=== PATIENT | female | born 1985 | race Caucasian/White ===

== ENCOUNTER 2017-11-09 16:31 | Observation (INO) | payer SELFPAY ==
[2017-11-09] VITALS (7 sets, daily range): BP systolic 105–112; BP diastolic 57–61; PULSE 70–91; RESP 18; TEMP 98
[~2017-11-09] VITALS: Ht 175.3 cm; Wt 77.1 kg
--- NOTE | 2017-11-09 18:01 | PD ---
HPI Chief Complaint Abdominal pain and twin at 22 weeks Date Seen: Nov 09, 2017 Time Seen: 17:40 Travel History International Travel<30 Days: No Contact w/Intl Traveler<30Days: No Known Affected Area: No History of Present Illness HPI Patient is 32-year-old white female at twin gestation 22--23 weeks who is planning to see Dr. Garg for care he has been her settlement agent for some time and is done laparoscopic surgery on her for endometriosis in the past , the patient just flew in from [place] today she had a long car ride and then 2 flights to get here and came straight to the hospital because he is having abdominal pain since before the second flight, and is quite likely she is just overextended herself and travel to my attention is gotten sore from that and dehydration. Babies are active she has no bleeding or leakage of fluid Weeks Gestation: 22 Para: 0 : 1 History Past Medical History Narrative Medical Endometriosis for which she has had a laparoscopy, interstitial cystitis, hepatitis C Obstetric History Obstetric History Twin gestation naturally no assisted reproductive techniques, Past Surgical History Narrative Surgical She has had laparoscopy for endometriosis Social History Narrative Social History History of drug addiction Alcohol Use: No Tobacco Use: No Substance Abuse: No Allergies-Medications (Allergen,Severity, Reaction): Uncoded Allergies: NARCOTICS (Allergy, Severe, RECOVERING ADDICT, 11/12/10) PT REQUESTS NO NARCOTICS Home Meds Active Scripts Nitrofurantoin Monohydrate Macrocrystals (Macrobid) 100 Mg Capsule, 100 MG PO BID for Infection for 7 Days, #14 CAP 0 Refills Prov:Delfino Zarco II, MD 11/09/17 Review of Systems General / Constitutional: No: Fever, Weight Gain, Chills, Other Eyes: No: Diploplia, Blurred Vision, Visual changes, Pain, Photophobia HENT: No: Headaches, Vertigo, Lightheadedness Cardiovascular: No: Irregular Rhythm, Chest Pain or Discomfort, Palpitations, Tachycardia, Syncope, Varicosities, Edema, Cyanosis Respiratory: No: Cough, Short of Breath, Other Gastrointestinal: Abdominal Pain, No: Nausea, Vomiting, Diarrhea Genitourinary: No: Decreased Urinary Output, Oliguria Musculoskeletal: No: Limited ROM, Weakness, Cramping, Edema, Pain Skin: No Rash, No Itching, No Dryness, No Lumps, No Change in Pigmentation, No Change in Nails, No Alopecia, No Lesions Neurologic: No: Weakness, Dizziness, Syncope, Focal Abnormalities, Coordination Problem, Headache, Slurred Speech, Seizures Psychiatric: No: Depression, Suicidal Ideations, Homicidal Ideation Endocrine: No: Heat Intolerance, Cold Intolerance, Polydipsia, Polyuria, Other Physical Exam Narrative GENERAL: Well-nourished, well-developed patient. SKIN: Warm and dry. HEAD: Normocephalic and atraumatic. EYES: No scleral icterus. No injection or drainage. ENT: No nasal drainage noted. Mucous membranes pink. Airway patent. NECK: Supple, trachea midline. No JVD. CARDIOVASCULAR: Regular rate and rhythm without murmurs, gallops, or rubs. RESPIRATORY: Breath sounds equal bilaterally. No accessory muscle use. BREASTS: Bilateral exam showed no masses , no retractions, no nipple discharge. ABDOMEN/GI: Abdomen soft, non-tender, bowel sounds present, no rebound, no guarding Gravid to [28-] weeks size[twins] Fundal Height: [-28] GENITOURINARY: External Genitalia: intact and normal in appearance BUS glands: [-] Cervix: [post-] Dilatation: [-0] Effacement: [-0] Station: [-3] Presentation: [trans/ trans by US-] Membranes: [intact ] Uterine Contractions: [no CTXS + irritability-] FHT's: 145/140 EXTREMITIES: No cyanosis or edema. BACK: Nontender without obvious deformity. No CVA tenderness. NEUROLOGICAL: Awake and alert. Motor and sensory grossly within normal limits. Five out of 5 muscle strength in all muscle groups. Normal speech. Data Data Orders Orders Ob Poc Ultrasound (11/09/17 ) Vital Signs (Adult) .ON ADMISSION (11/09/17 17:46) ^ Labor Status (11/09/17 17:46) Urinalysis - C+S If Indicated (11/09/17 17:46) ^ Non Stress Test (11/09/17 17:46) ^ Hydration (11/09/17 17:46) Lactated Ringer's 1000 Ml Inj (Lr 1000 M (11/09/17 17:46) Ob/Psych Drug Screen, Urine (11/09/17 17:46) Fentanyl Inj (Fentanyl Inj) (11/09/17 18:00) Labs Urine on LBD and dipstick shows moderate leukocyte esterase otherwise negative Bedside ultrasound was done shows a twin-twin gestation twin A is transverse back down 22 week 3 day size estimated weight 496 gm, adequate amniotic fluid noted intervening membrane seen grade 0 placenta is seen anteriorly Twin B is also transverse at 22 week 3 day size estimated weight 491 gm adequate amniotic fluid noted, in the fundus grade 0 placenta seen., Both babies were active with lots of movement normal cardiac motion, normal anatomy scan on both babies MDM Interpretation(s) Patient is 32-year-old white female at 22 weeks with twin gestation who has abdominal pain that developed during her long trip from [place] today pain is worsened by movement motion laying down and sitting up walking, she has some minimal nausea no vomiting no fever, urinalysis here was positive for moderate leukocyte esterase which could be just consistent with interstitial cystitis or possibly a low-grade UTI she has been on no antibiotics recently. Babies look good on ultrasound with concordant growth and normal fluid intervening membrane lots of activity, patient's cervix is posterior closed and high thick, no contractions seen on the monitor is uterine irritability minimal at that Plan Plan IV hydrate IV medicate with fentanyl, like to be able to send the patient home after that to pelvic bed rest as much as possible over the next 48 hours, increase p.o. fluids for hydration, Tylenol use liberally 1-2 every 4 hours as needed pain heating pad or hot bath also is for symptom relief. Will begin Macrobid 100 mg p.o. twice daily for 7 days Because the patient continues to have abdominal pain in spite of the above mentioned efforts I discussed the patient with Dr. Garg we agreed to do an inpatient 23 hour observation and treat with IV fluid IV pain medication check appropriate lab, will give 1 dose of IV gentamicin and start the p.o. Macrobid here Diagnosis Diagnosis: Primary Impression: Abdominal pain during in second trimester Additional Impressions: Twin gestation in second trimester UTI (urinary tract infection) in in second trimester Scripts Nitrofurantoin Monohydrate Macrocrystals (Macrobid) 100 Mg Capsule 100 MG PO BID for Infection for 7 Days, #14 CAP 0 Refills Prov: Delfino Zarco II, MD 11/09/17 Departure Forms: Work Release Delfino Zarco II, MD Nov 09, 2017 18:01
[2017-11-09] MEDS ORDERED: MACR100C2 PO (18:02)
[2017-11-09] MEDS: LACTATED RINGER'S 1000 ML INJ 1,000 ML IV SCH ×3 (18:35→19:35)
[2017-11-09 19:39] LABS: AMORPHOUS SEDIMENT, URINE RARE; BACTERIA, URINE MANY /hpf; BILIRUBIN, URINE NEG (NEG); BLOOD, URINE NEG (NEG); GLUCOSE,URINE NEG (NEG); KETONE, URINE NEG (NEG); MUCUS URINE FEW /lpf (OCC); NITRITE,URINE NEG (NEG); PH, URINE 6.5 (5.0-8.5); SQUAMOUS EPITHELIAL CELL URINE 6 /hpf (0-5); URINE COLOR LIGHT-YELLOW (YELLW/STRAW); URINE LEUKOCYTE ESTERASE LARGE (NEG)
[2017-11-09] MEDS ORDERED: SODIUM CHLORIDE 0.9% FLUSH 10 ML FLUSH IV FLUSH PRN (20:00)
[2017-11-09] MEDS ORDERED: ZOLPIDEM TARTRATE 5 MG TAB PO PRN (20:00)
[2017-11-09] MEDS ORDERED: ALUMINUM/MAGNESIUM/SIMETH 30 ML CUP PO PRN (20:00)
[2017-11-09] MEDS: MORPHINE SULFATE 4 MG/ML INJ IV PUSH PRN ×2 (20:24→23:19)
[2017-11-09] MEDS: ONDANSETRON HCL 4 MG/2 ML VIAL IV PUSH PRN (20:25)
[2017-11-09] MEDS ORDERED: GENTAMICIN INJ 100 MG in SODIUM CHLORIDE 0.9% INJ 100 ML IV ONE (21:00)
[2017-11-09] MEDS: SODIUM CHLORIDE 0.9% FLUSH 10 ML FLUSH IV FLUSH SCH (21:00)
[2017-11-09 21:15] LABS: AUTOMATED NEUTROPHIL # 7.6 TH/MM3 (1.8-7.7); BASOPHIL % 0.3 % (0.0-2.0); EOSINOPHIL % 0.2 % (0.0-4.0); HEMATOCRIT 28.8 % (35.0-46.0); HEMOGLOBIN 10.3 GM/DL (11.6-15.3); LYMPH % 22.1 % (9.0-44.0); LYMPHOCYTE # 2.3 TH/MM3 (1.0-4.8); MEAN CELL VOLUME 93.3 FL (80.0-100.0); MEAN CORPUSCULAR HEMOGLOBIN 33.4 PG (27.0-34.0); MEAN CORPUSCULAR HGB CONC 35.8 % (32.0-36.0); MONO % 5.2 % (0.0-8.0); MONOCYTE # 0.5 TH/MM3 (0-0.9); NEUT % 72.2 % (16.0-70.0); PLATELET COUNT 202 TH/MM3 (150-450); RED BLOOD COUNT 3.09 MIL/MM3 (4.00-5.30); RED CELL DISTRIBUTION WIDTH 14.1 % (11.6-17.2); WHITE BLOOD COUNT 10.5 TH/MM3 (4.0-11.0)
[2017-11-09 21:39] LABS: ALBUMIN 2.7 GM/DL (3.4-5.0); AST (GOT) 21 U/L (15-37); BICARBONATE 22.1 MEQ/L (21.0-32.0); BLOOD UREA NITROGEN 6 MG/DL (7-18); CALCIUM 7.8 MG/DL (8.5-10.1); CHLORIDE 107 MEQ/L (98-107); CREATININE 0.57 MG/DL (0.50-1.00); GLOMERULAR FILTRATION RATE 122 ML/MIN (>89); GLUCOSE,RANDOM 85 MG/DL (74-106); SODIUM (NA) 139 MEQ/L (136-145)
[2017-11-09 21:42] LABS: ALKALINE PHOSPHATASE 57 U/L (45-117); ALT (GPT) 27 U/L (10-53); TOTAL BILIRUBIN ADULT 0.8 MG/DL (0.2-1.0)
[2017-11-09] MEDS ORDERED: NITROFURANTOIN MONOHYD MACROCR 100 MG CAP PO ONE (22:30)
[2017-11-09] MEDS ORDERED: MAGNESIUM SULFATE 40 GM PREMIX 1,000 ML IV SCH (22:45)
[2017-11-09] MEDS ORDERED: CALCIUM GLUCONATE 10% 1 GM/10 ML VIAL IV PUSH PRN (22:45)
[2017-11-09] MEDS ORDERED: MAGNESIUM SULFATE 4GRAM PRMIX-LOAD DOSE IV ONE (22:45)
[2017-11-09] MEDS ORDERED: LIDOCAINE 2% JELLY 5 ML TUBE OTHER PRN (23:00)
[2017-11-09] MEDS: AMPICILLIN 2 GM/NS 100 ML IV SCH ×2 (23:17)
[2017-11-10] VITALS (21 sets, daily range): BP systolic 92–116; BP diastolic 51–71; PULSE 80–95; RESP 18–20; TEMP 97.9–99.5
[2017-11-10] MEDS: FAMOTIDINE 20 MG TAB PO SCH ×3 (02:00→21:11)
[2017-11-10] MEDS ORDERED: PROMETHAZINE HCL 25 MG TAB PO PRN (02:00)
--- NOTE | 2017-11-10 02:04 | PD.OB.ANTE ---
Subjective Diagnosis: (1) labor in second trimester with delivery in second trimester Diagnosis: Principal Antepartum ROS: Reports: Other (abdominal pain) Objective Vital Signs Vital Signs Date Time Temp Pulse Resp B/P (MAP) Pulse Ox O2 Delivery O2 Flow Rate FiO2 11/10/17 01:00 18 11/10/17 00:07 86 107/62 (77) 11/09/17 23:26 91 18 105/61 (76) 11/09/17 23:10 18 11/09/17 23:10 98.0 11/09/17 22:50 70 112/57 (75) 11/09/17 22:13 18 11/09/17 20:30 18 11/09/17 20:08 20 11/09/17 20:00 18 11/09/17 19:43 18 11/09/17 19:10 18 Lab & Micro Results Test 11/09/17 17:00 11/09/17 21:02 Urine Color LIGHT-YELLOW Urine Turbidity HAZY Urine pH 6.5 Urine Specific [place] 1.006 Urine Protein NEG mg/dL Urine Glucose (UA) NEG mg/dL Urine Ketones NEG mg/dL Urine Occult Blood NEG Urine Nitrite NEG Urine Bilirubin NEG Urine Urobilinogen LESS THAN 2.0 MG/DL Urine Leukocyte Esterase LARGE Urine RBC 3 /hpf Urine WBC 15 /hpf Urine Squamous Epithelial Cells 6 /hpf Urine Amorphous Sediment RARE Urine Bacteria MANY /hpf Urine Mucus FEW /lpf Microscopic Urinalysis Comment CULTURE INDICATED Urine Opiates Screen NEG Urine Barbiturates Screen NEG Urine Amphetamines Screen NEG Urine Benzodiazepines Screen NEG Urine Cocaine Screen NEG Urine Cannabinoids Screen NEG White Blood Count 10.5 TH/MM3 Red Blood Count 3.09 MIL/MM3 Hemoglobin 10.3 GM/DL Hematocrit 28.8 % Mean Corpuscular Volume 93.3 FL Mean Corpuscular Hemoglobin 33.4 PG Mean Corpuscular Hemoglobin Concent 35.8 % Red Cell Distribution Width 14.1 % Platelet Count 202 TH/MM3 Mean Platelet Volume 8.0 FL Neutrophils (%) (Auto) 72.2 % Lymphocytes (%) (Auto) 22.1 % Monocytes (%) (Auto) 5.2 % Eosinophils (%) (Auto) 0.2 % Basophils (%) (Auto) 0.3 % Neutrophils # (Auto) 7.6 TH/MM3 Lymphocytes # (Auto) 2.3 TH/MM3 Monocytes # (Auto) 0.5 TH/MM3 Eosinophils # (Auto) 0.0 TH/MM3 Basophils # (Auto) 0.0 TH/MM3 CBC Comment DIFF FINAL Differential Comment Blood Urea Nitrogen 6 MG/DL Creatinine 0.57 MG/DL Random Glucose 85 MG/DL Total Protein 6.0 GM/DL Albumin 2.7 GM/DL Calcium Level 7.8 MG/DL Alkaline Phosphatase 57 U/L Aspartate Amino Transf (AST/SGOT) 21 U/L Alanine Aminotransferase (ALT/SGPT) 27 U/L Total Bilirubin 0.8 MG/DL Sodium Level 139 MEQ/L Potassium Level 3.3 MEQ/L Chloride Level 107 MEQ/L Carbon Dioxide Level 22.1 MEQ/L Anion Gap 10 MEQ/L Estimat Glomerular Filtration Rate 122 ML/MIN Date/Time Source Procedure Growth Status 11/09/17 17:00 Urine Clean Catch Urine Culture Pending Worksheet Physical Exam GENERAL: Well-nourished, well-developed patient. CARDIOVASCULAR: Regular rate and rhythm without murmurs, gallops, or rubs. RESPIRATORY: Breath sounds equal bilaterally. No accessory muscle use. ABDOMEN/GI: Abdomen soft, non-tender. Fundus: [-] GENITOURINARY: External Genitalia: intact and normal in appearance Cervix: [-] Dilatation: deferred Effacement: [-] Station: [-] Presentation: [-] Membranes: [-] Uterine Contractions: [-] FHT's: Category: 1 Baseline: [-] Reactive: [-] Variability: [-] Decels: [-] EXTREMITIES: No cyanosis or edema, non-tender, without signs of DVT. Assessment and Plan Problem List: (1) labor in second trimester with delivery in second trimester ICD Codes: O60.12X0 - labor second trimester with delivery second trimester, not applicable or unspecified Assessment and Plan Patient given morphine and magnesium, She is with twins and travelled from [place] today Jett Simmons MD Nov 10, 2017 02:04
[2017-11-10] MEDS: ONDANSETRON HCL 4 MG/2 ML VIAL IV PUSH PRN ×2 (03:39→09:36)
[2017-11-10] MEDS: AMPICILLIN 2 GM/NS 100 ML IV SCH ×8 (05:00→22:34)
--- NOTE | 2017-11-10 07:35 | PD.OB.ANTE ---
Subjective Diagnosis: (1) labor in second trimester with delivery in second trimester Diagnosis: Principal Antepartum ROS: Reports: Other (contractions improved on 3gm magnesium. will decrease magnesium to 2 grams) Objective Vital Signs Vital Signs Date Time Temp Pulse Resp B/P (MAP) Pulse Ox O2 Delivery O2 Flow Rate FiO2 11/10/17 05:34 97.9 11/10/17 05:26 92 96/53 (67) 11/10/17 05:25 18 11/10/17 05:10 18 11/10/17 03:30 18 11/10/17 03:25 18 11/10/17 02:16 18 11/10/17 02:14 95 116/71 (86) 11/10/17 01:00 18 11/10/17 00:07 86 107/62 (77) 11/09/17 23:26 91 18 105/61 (76) 11/09/17 23:10 18 11/09/17 23:10 98.0 11/09/17 22:50 70 112/57 (75) 11/09/17 22:13 18 11/09/17 20:30 18 11/09/17 20:08 20 11/09/17 20:00 18 11/09/17 19:43 18 11/09/17 19:10 18 Lab & Micro Results Test 11/09/17 17:00 11/09/17 21:02 Urine Color LIGHT-YELLOW Urine Turbidity HAZY Urine pH 6.5 Urine Specific [place] 1.006 Urine Protein NEG mg/dL Urine Glucose (UA) NEG mg/dL Urine Ketones NEG mg/dL Urine Occult Blood NEG Urine Nitrite NEG Urine Bilirubin NEG Urine Urobilinogen LESS THAN 2.0 MG/DL Urine Leukocyte Esterase LARGE Urine RBC 3 /hpf Urine WBC 15 /hpf Urine Squamous Epithelial Cells 6 /hpf Urine Amorphous Sediment RARE Urine Bacteria MANY /hpf Urine Mucus FEW /lpf Microscopic Urinalysis Comment CULTURE INDICATED Urine Opiates Screen NEG Urine Barbiturates Screen NEG Urine Amphetamines Screen NEG Urine Benzodiazepines Screen NEG Urine Cocaine Screen NEG Urine Cannabinoids Screen NEG White Blood Count 10.5 TH/MM3 Red Blood Count 3.09 MIL/MM3 Hemoglobin 10.3 GM/DL Hematocrit 28.8 % Mean Corpuscular Volume 93.3 FL Mean Corpuscular Hemoglobin 33.4 PG Mean Corpuscular Hemoglobin Concent 35.8 % Red Cell Distribution Width 14.1 % Platelet Count 202 TH/MM3 Mean Platelet Volume 8.0 FL Neutrophils (%) (Auto) 72.2 % Lymphocytes (%) (Auto) 22.1 % Monocytes (%) (Auto) 5.2 % Eosinophils (%) (Auto) 0.2 % Basophils (%) (Auto) 0.3 % Neutrophils # (Auto) 7.6 TH/MM3 Lymphocytes # (Auto) 2.3 TH/MM3 Monocytes # (Auto) 0.5 TH/MM3 Eosinophils # (Auto) 0.0 TH/MM3 Basophils # (Auto) 0.0 TH/MM3 CBC Comment DIFF FINAL Differential Comment Blood Urea Nitrogen 6 MG/DL Creatinine 0.57 MG/DL Random Glucose 85 MG/DL Total Protein 6.0 GM/DL Albumin 2.7 GM/DL Calcium Level 7.8 MG/DL Alkaline Phosphatase 57 U/L Aspartate Amino Transf (AST/SGOT) 21 U/L Alanine Aminotransferase (ALT/SGPT) 27 U/L Total Bilirubin 0.8 MG/DL Sodium Level 139 MEQ/L Potassium Level 3.3 MEQ/L Chloride Level 107 MEQ/L Carbon Dioxide Level 22.1 MEQ/L Anion Gap 10 MEQ/L Estimat Glomerular Filtration Rate 122 ML/MIN Date/Time Source Procedure Growth Status 11/09/17 17:00 Urine Clean Catch Urine Culture Pending Worksheet Physical Exam GENERAL: Well-nourished, well-developed patient. CARDIOVASCULAR: Regular rate and rhythm without murmurs, gallops, or rubs. RESPIRATORY: Breath sounds equal bilaterally. No accessory muscle use. ABDOMEN/GI: Abdomen soft, non-tender. Fundus: [-] GENITOURINARY: External Genitalia: intact and normal in appearance Cervix: [-] Dilatation: [-] Effacement: [-] Station: [-] Presentation: [-] Membranes: [-] Uterine Contractions: [-] FHT's: Category: [-] Baseline: [-] Reactive: [-] Variability: [-] Decels: [-] EXTREMITIES: No cyanosis or edema, non-tender, without signs of DVT. Assessment and Plan Problem List: (1) labor in second trimester with delivery in second trimester ICD Codes: O60.12X0 - labor second trimester with delivery second trimester, not applicable or unspecified Assessment and Plan Patient given morphine and magnesium, She is with twins and travelled from [place] yesterday will get US today Jett Simmons MD Nov 10, 2017 07:35
[2017-11-10] MEDS ORDERED: PROMETHAZINE INJ 25 MG/ML VIAL IM PRN (08:00)
[2017-11-10] MEDS: SODIUM CHLORIDE 0.9% FLUSH 10 ML FLUSH IV FLUSH SCH ×2 (09:00→21:00)
[2017-11-10] MEDS: NITROFURANTOIN MONOHYD MACROCR 100 MG CAP PO SCH ×2 (09:00→18:11)
--- NOTE | 2017-11-10 10:52 | MB ---
cc: Johny Wilkerson MD DATE OF CONSULT: 11/10/2017 REQUESTING PHYSICIAN: Dr. Simmons HISTORY: This is the case of a 32-year-old white female 1, para 0 at 22 weeks' gestation by dates and ultrasound. The patient is known to have dichorionic diamniotic twins and was returning from a trip to [place] when she presented to [facility] complaining of abdominal pain. The patient states that this was associated with nausea but no vomiting. Denies any diarrhea. Refers that she also has had some urgency and very mild burning on urination, but no other symptoms. Denies any vaginal bleeding, leakage of water, decreased movements. The patient had received care in [place] and had seen a maternal medicine who had performed ultrasound. The last one was one week ago and was told to have dichorionic diamniotic twins. PAST MEDICAL HISTORY: 1. Significant for endometriosis for which she has had laparoscopy. 2. Also refers a history of interstitial cystitis. 3. History of hepatitis C diagnosed one year ago. PAST SURGICAL HISTORY: Significant for laparoscopy. SOCIAL HISTORY: The patient denies any current alcohol, tobacco or drug abuse, however, she does have a history of drug addiction with IV drug use and development of hepatitis C subsequent to this. ALLERGIES: THE PATIENT STATES SHE HAS NO KNOWN DRUG ALLERGIES, HOWEVER, REQUESTS NO NARCOTICS IN VIEW OF BEING A RECOVERING ADDICT. REVIEW OF SYSTEMS: On a 10-point evaluation is completely negative except for genitourinary complaints of mild dysuria and gastrointestinal complaints of abdominal pain and cramps. PHYSICAL EXAM: VITAL SIGNS: Blood pressure 110/72, heart rate 88, respiratory rate 18, afebrile. GENERAL: A well nourished, well-developed female, alert and oriented x 3 in no acute distress. HEENT: Normocephalic. Eyes PERRLA, adequate EOM. NECK: Supple. No thyromegaly. LUNGS: Clear to auscultation. HEART: Normal sinus rhythm. Grade I/ systolic ejection murmur at the left sternal border. ABDOMEN: Gravid, nontender. heart tones category I x 2. No significant contractions noted on the monitor. PELVIC: Exam deferred, however, transvaginal ultrasounds shows cervix to be closed and a cervical length of 3.2 cm. No blood noted on the glove. EXTREMITIES: No edema. Deep tendon reflexes decreased. deep tendon reflexes. Ultrasound examination, shows a twin gestation with measurements consistent with 22 weeks. A complete anatomical survey not performed as the patient could not tolerate ultrasound due to severe nausea and vomiting, but no obvious structural abnormalities were noted. Normal amniotic fluid in both sacs. As noted, transvaginal ultrasound shows the cervix to be 3.2 cm and closed. Urinalysis shows significant leukocyte esterase and large WBCs and bacteria suggestive of urinary tract infection. The patient is already on Macrobid for a UTI and culture is pending. IMPRESSION: 1. Intrauterine at 22 weeks. 2. Twin gestation dichorionic diamniotic. 3. Abdominal pain etiology unknown. 4. Grossly abnormal urinalysis suggestive of UTI. RECOMMENDATIONS: May taper off magnesium sulfate and start a clear liquid diet. If contractions ensue, may use Indocin dose of 25-50 mg q. 6 hours up to 48 hours. At the present time, I do not believe this patient is in pre-term labor and symptoms may be related to gastrointestinal problems or dehydration after a prolonged trip. I recommend the patient reestablish with care and continue serial ultrasounds at 4 week intervals due to dichorionic diamniotic twin gestation. Recommend also hepatitis C viral count and counseling as well. A liver function test should be obtained as well. Johny Wilkerson MD RAC/DL/ , 09:58 AM , 10:32 AM
[2017-11-10] MEDS: ACETAMINOPHEN 325 MG TAB PO PRN ×2 (15:41→22:34)
[2017-11-10] MEDS: LACTATED RINGER'S 1000 ML INJ 1,000 ML IV SCH ×3 (18:10→22:45)
[2017-11-11] MEDS: AMPICILLIN 2 GM/NS 100 ML IV SCH ×2 (05:12)
[2017-11-11 05:15] VITALS: TEMP 98.6
[2017-11-11 05:16] VITALS: BP 96/49; PULSE 94; RESP 18
[2017-11-11] MEDS: FAMOTIDINE 20 MG TAB PO SCH (08:38)
[2017-11-11] MEDS: NITROFURANTOIN MONOHYD MACROCR 100 MG CAP PO SCH (08:38)
[2017-11-11 08:41] VITALS: RESP 18; TEMP 98.1
--- NOTE | 2017-11-11 08:45 | PD.OB.ANTE ---
Subjective Diagnosis: (1) labor in second trimester with delivery in second trimester Diagnosis: Principal Antepartum ROS: Reports: Other (patient having less pain ready for DC home, PTL resolved) Objective Vital Signs Vital Signs Date Time Temp Pulse Resp B/P (MAP) Pulse Ox O2 Delivery O2 Flow Rate FiO2 11/11/17 05:16 94 18 96/49 (65) 11/11/17 05:15 98.6 11/10/17 22:33 98.5 80 108/60 (76) 11/10/17 22:23 18 11/10/17 22:00 18 11/10/17 19:55 99.5 20 11/10/17 18:09 90 111/67 (82) 11/10/17 16:18 85 104/58 (73) 11/10/17 13:23 20 11/10/17 13:23 98.1 11/10/17 13:22 86 92/51 (65) 11/10/17 12:00 89 105/66 (79) 11/10/17 11:00 93 108/59 (75) 11/10/17 10:00 90 105/64 (78) 11/10/17 09:38 90 103/64 (77) 11/10/17 09:03 98.7 90 20 104/63 (77) Lab & Micro Results Test 11/10/17 12:50 Urine Opiates Screen NEG Urine Barbiturates Screen NEG Urine Amphetamines Screen NEG Urine Benzodiazepines Screen NEG Urine Cocaine Screen NEG Urine Cannabinoids Screen NEG Date/Time Source Procedure Growth Status 11/09/17 17:00 Urine Clean Catch Urine Culture - Preliminary NO GROWTH IN 24 HOURS. Resulted Physical Exam GENERAL: Well-nourished, well-developed patient. CARDIOVASCULAR: Regular rate and rhythm without murmurs, gallops, or rubs. RESPIRATORY: Breath sounds equal bilaterally. No accessory muscle use. ABDOMEN/GI: Abdomen soft, non-tender. Fundus: [-] GENITOURINARY: External Genitalia: intact and normal in appearance Cervix: [-] Dilatation: [-] Effacement: [-] Station: [-] Presentation: [-] Membranes: [-] Uterine Contractions: [-] FHT's: Category: 1 Baseline: [-] Reactive: [-] Variability: [-] Decels: [-] EXTREMITIES: No cyanosis or edema, non-tender, without signs of DVT. Assessment and Plan Problem List: (1) labor in second trimester with delivery in second trimester ICD Codes: O60.12X0 - labor second trimester with delivery second trimester, not applicable or unspecified Assessment and Plan [facility] Jett Simmons MD Nov 11, 2017 08:45
[2017-11-11] MEDS ORDERED: MACR100C2 PO (08:46)
--- NOTE | 2017-11-11 08:47 | HHI.DCPOC ---
Discharge Care Plan Diagnosis: (1) labor in second trimester with delivery in second trimester Report Symptoms to Your Doctor -Temperature above 100.5 degrees -Redness, of incision or excessive or foul smelling drainage -Unusual pain or calf pain -Increased vaginal bleeding -Painful or difficulty urinating -Feelings of extreme sadness or anxiety after 2 weeks Goals to Promote Your Health * To prevent worsening of your condition and complications * To maintain your health at the optimal level Directions to Meet Your Goals Take your medications as prescribed Follow your dietary instruction Follow activity as directed Ensure plenty of rest for recovery Drink fluids for hydration Keep your appointments as scheduled Take your immunizations and boosters as scheduled If your symptoms worsen call your PCP, if no PCP go to Urgent Care Center or Emergency Room Smoking is Dangerous to Your Health. Avoid second hand smoke Call the 24-hour crisis hotline for domestic abuse at Jett Simmons MD Nov 11, 2017 08:47
--- NOTE | 2017-11-11 08:49 | HHI.DS ---
Admission Date Nov 09, 2017 at 19:46 Discharge Date: Nov 11, 2017 Admitting Diagnosis Diagnosis: (1) labor in second trimester with delivery in second trimester Diagnosis: Principal ICD Codes: O60.12X0 - labor second trimester with delivery second trimester, not applicable or unspecified (2) Abdominal pain during in second trimester Diagnosis: Principal ICD Codes: O26.892 - Other specified related conditions, second trimester; R10.9 - Unspecified abdominal pain Status: Acute Brief History Patient is 32-year-old white female at twin gestation 22--23 weeks who is planning to see Dr. 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 Babies are active she has no bleeding or leakage of fluid Hospital Course patient had severe pain and labor both have resolved Pt Condition on Discharge: Good Discharge Disposition: Discharge Home Discharge Instructions Diet Instructions: As Tolerated, No Restrictions Activities You Can Perform: Pelvic Rest Activities to Avoid: Driving for 24 hrs Follow up Referrals: [facility] - 2 Weeks @ [facility] with Jett Simmons MD Continued Medications: Nitrofurantoin Monohydrate Macrocrystals (Macrobid) 100 Mg Capsule 100 MG PO BID for Infection for 5 Days, #10 CAP 0 Refills (This prescription has been renewed) Jett Simmons MD Nov 11, 2017 08:49
== END 2017-11-11 13:02 | disposition home or self-care (01) ==
LOC: HOBED 16:31 → H2EA 19:46
PROVIDERS: ADMIT Obstetrics & Gynecology; ATTEND Obstetrics & Gynecology
DX: O26.892 Other specified pregnancy related conditions, second trimester (principal); Z3A.22 22 weeks gestation of pregnancy; O30.042 Twin pregnancy, dichorionic/diamniotic, second trimester; N39.0 Urinary tract infection, site not specified; B96.89 Other specified bacterial agents as the cause of diseases classified elsewhere; B19.20 Unspecified viral hepatitis C without hepatic coma; F19.21 Other psychoactive substance dependence, in remission; R11.0 Nausea; Z03.89 Encounter for observation for other suspected diseases and conditions ruled out
CPT/HCPCS: 36415; 76811; 76812; 76815; 76817; 80053; 80307; 80358; 81001; 85025; 87086; 96365; 96366; 96372; 96375; 96376; 99285; G0378; G0481; J0290; J1580; J2270; J2405; J2550; J3010; J3475; J7120; Q0169; G0480

== ENCOUNTER 2017-11-13 23:53 | Observation (INO) | payer SELFPAY ==
[~2017-11-13] VITALS: Ht 175.3 cm; Wt 77.1 kg
[~2017-11-13 23:53] MED LIST: MACR100C2 PO
[2017-11-14] MEDS ORDERED: PROMETHAZINE INJ 25 MG/ML VIAL IM STA (00:33)
--- NOTE | 2017-11-14 00:41 | PD ---
HPI Chief Complaint Nausea vomiting Date Seen: Nov 14, 2017 Time Seen: 00:36 Travel History International Travel<30 Days: No Contact w/Intl Traveler<30Days: No Known Affected Area: No History of Present Illness HPI 32-year-old who is at 23 weeks and 2 days with diamniotic dichorionic twin gestation who complains of nausea vomiting that began this morning. Multiple episodes of emesis with the inability to keep down fluids associated with 2 bouts of diarrhea. Patient denies vaginal bleeding, contractions, or signs of labor. She was admitted to [facility] 1 week ago after flying down from [place] and kept overnight for a workup of labor, receiving magnesium sulfate for tocolysis. Patient has been well at home since that time until this morning. There are others in her household that have similar symptoms as well. Denies fever. Weeks Gestation: 23 Para: 0 : 1 History Past Medical History Narrative Medical Endometriosis necessitating diagnostic laparoscopy Hepatitis C due to history of drug addiction Interstitial cystitis currently on no medication Past Surgical History Narrative Surgical Diagnostic laparoscopy Family History Family History: Negative Social History Narrative Social History History of opioid use in the past most recent urine drug screen while she was an inpatient was negative Alcohol Use: No Tobacco Use: No Substance Abuse: No Allergies-Medications (Allergen,Severity, Reaction): Coded Allergies: No Known Allergies (Verified Allergy, Unknown, 11/09/17) Uncoded Allergies: NARCOTICS (Allergy, Severe, RECOVERING ADDICT, 11/12/10) PT REQUESTS NO NARCOTICS Home Meds Active Scripts Nitrofurantoin Monohydrate Macrocrystals (Macrobid) 100 Mg Capsule, 100 MG PO BID for Infection for 5 Days, #10 CAP 0 Refills Prov:Jett Simmons MD 11/11/17 Review of Systems Except as stated in HPI: all other systems reviewed are Neg Physical Exam Narrative GENERAL: Well-nourished, appears mildly ill SKIN: Warm and dry. HEAD: Normocephalic and atraumatic. EYES: No scleral icterus. No injection or drainage. ENT: No nasal drainage noted. Mucous membranes pink. Airway patent. NECK: Supple, trachea midline. No JVD. CARDIOVASCULAR: Regular rate and rhythm without murmurs, gallops, or rubs. RESPIRATORY: Breath sounds equal bilaterally. No accessory mu ABDOMEN/GI: Abdomen soft, non-tender, bowel sounds present, no rebound, no guarding Gravid to [-] weeks size 27 Fundal Height: [-] GENITOURINARY: Deferred External Genitalia: intact and normal in appearance BUS glands: [-] Cervix: [-] Dilatation: [-] Effacement: [-] Station: [-] Presentation: [-] Membranes: [intact or ruptured] Uterine Contractions: [-] Patient refuses to allow external toco placement due to her extreme nausea, no palpable contractions noted, patient denies contractions FHT's: 1402 by Doppler, will attempt monitoring once patient receives fluids and antibiotics Category: [-] Baseline: [-] Reactive: [-] Variability: [-] Decels: [-] EXTREMITIES: No cyanosis or edema. BACK: Nontender without obvious deformity. No CVA tenderness. NEUROLOGICAL: Awake and alert. Motor and sensory grossly within normal limits. Five out of 5 muscle strength in all muscle groups. Normal speech. Data Data Orders Orders Vital Signs (Adult) .ON ADMISSION (11/14/17 00:33) ^ Labor Status (11/14/17 00:33) Urinalysis - C+S If Indicated (11/14/17 00:33) ^ Non Stress Test (11/14/17 00:33) Diet Liquid (11/14/17 Breakfast) Cbc No Diff, Includes Plts (11/14/17 00:33) Basic Metabolic Panel (Bmp) (11/14/17 00:33) Ondansetron Inj (Zofran Inj) (11/14/17 00:45) Lr (Bolus) Inj (11/14/17 00:45) Promethazine Inj (Phenergan Inj) (11/14/17 00:33) Labs Laboratory Tests Test 11/14/17 00:15 11/14/17 00:45 Urine Color YELLOW Urine Turbidity HAZY Urine pH 5.5 Urine Specific [place] 1.026 Urine Protein 30 mg/dL Urine Glucose (UA) NEG mg/dL Urine Ketones 150 mg/dL Urine Occult Blood NEG Urine Nitrite NEG Urine Bilirubin NEG Urine Urobilinogen 2.0 MG/DL Urine Leukocyte Esterase MOD Urine RBC 1 /hpf Urine WBC 3 /hpf Urine Squamous Epithelial Cells 12 /hpf Urine Bacteria MANY /hpf Urine Hyaline Casts 1 /lpf Urine Mucus FEW /lpf Microscopic Urinalysis Comment CULTURE INDICATED White Blood Count 13.9 TH/MM3 Red Blood Count 3.60 MIL/MM3 Hemoglobin 11.8 GM/DL Hematocrit 33.9 % Mean Corpuscular Volume 94.2 FL Mean Corpuscular Hemoglobin 32.8 PG Mean Corpuscular Hemoglobin Concent 34.8 % Red Cell Distribution Width 13.9 % Platelet Count 240 TH/MM3 Mean Platelet Volume 8.6 FL Blood Urea Nitrogen 8 MG/DL Creatinine 0.53 MG/DL Random Glucose 113 MG/DL Calcium Level 8.0 MG/DL Sodium Level 136 MEQ/L Potassium Level 3.3 MEQ/L Chloride Level 105 MEQ/L Carbon Dioxide Level 21.7 MEQ/L Anion Gap 9 MEQ/L Estimat Glomerular Filtration Rate 133 ML/MIN [facility] Medical Record Reviewed: Yes Plan 32-year-old at 23 weeks gestation with di-di-twins Acute gastroenteritis despite hydration and antiemetics patient is unable to tolerate fluids orally No signs of bacterial infection, continue IV fluids with potassium repletion Recheck metabolic profile in the morning Patient is not laureen and shows no signs of labor at this time Diagnosis Diagnosis: Primary Impression: Twin gestation in second trimester Additional Impressions: 23 weeks gestation of Gastroenteritis Dehydration symptoms Latoya Otero MD Nov 14, 2017 00:41
[2017-11-14] MEDS ORDERED: ONDANSETRON HCL 4 MG/2 ML VIAL IV PUSH ONE (00:45)
[2017-11-14] MEDS ORDERED: LACTATED RINGER'S 1000 ML INJ 1,000 ML IV ONE ×2 (00:45→02:00)
[2017-11-14 01:03] LABS: BACTERIA, URINE MANY /hpf; BILIRUBIN, URINE NEG (NEG); BLOOD, URINE NEG (NEG); GLUCOSE,URINE NEG (NEG); HYALINE CAST, URINE 1 /lpf (RARE); KETONE, URINE 150 mg/dL (NEG); MUCUS URINE FEW /lpf (OCC); NITRITE,URINE NEG (NEG); PH, URINE 5.5 (5.0-8.5); SQUAMOUS EPITHELIAL CELL URINE 12 /hpf (0-5); URINE COLOR YELLOW (YELLW/STRAW); URINE LEUKOCYTE ESTERASE MOD (NEG)
[2017-11-14 01:09] LABS: HEMATOCRIT 33.9 % (35.0-46.0); HEMOGLOBIN 11.8 GM/DL (11.6-15.3); MEAN CELL VOLUME 94.2 FL (80.0-100.0); MEAN CORPUSCULAR HEMOGLOBIN 32.8 PG (27.0-34.0); MEAN CORPUSCULAR HGB CONC 34.8 % (32.0-36.0); MEAN PLATELET VOLUME 8.6 FL (7.0-11.0); PLATELET COUNT 240 TH/MM3 (150-450); RED CELL DISTRIBUTION WIDTH 13.9 % (11.6-17.2); WHITE BLOOD COUNT 13.9 TH/MM3 (4.0-11.0)
[2017-11-14 01:23] LABS: BICARBONATE 21.7 MEQ/L (21.0-32.0); CREATININE 0.53 MG/DL (0.50-1.00)
[2017-11-14] MEDS ORDERED: ONDANSETRON HCL 4 MG/2 ML VIAL IV PUSH PRN (01:45)
[2017-11-14] MEDS ORDERED: SODIUM CHLORIDE 0.9% FLUSH 10 ML FLUSH IV FLUSH PRN (01:45)
[2017-11-14] MEDS ORDERED: FAMOTIDINE 20 MG/2 ML VIAL IV PUSH SCH (01:45)
[2017-11-14] MEDS ORDERED: ACETAMINOPHEN 325 MG TAB PO PRN (01:45)
[2017-11-14 01:58] VITALS: BP 114/66; PULSE 102
[2017-11-14 02:00] VITALS: RESP 16
[2017-11-14] MEDS: POTASSIUM CHLORIDE INJ 20 MEQ in LACTATED RINGER'S 1000 ML INJ 1,000 ML IV SCH ×2 (02:38→09:33)
[2017-11-14] MEDS: ALUMINUM/MAGNESIUM/SIMETH 30 ML CUP PO PRN ×2 (03:05→13:28)
[2017-11-14] MEDS ORDERED: ZOFR4TAB PO (03:22)
[2017-11-14 07:24] VITALS: TEMP 98.9
[2017-11-14 07:25] VITALS: BP 102/58; PULSE 101
[2017-11-14 07:41] LABS: BICARBONATE 20.1 MEQ/L (21.0-32.0); CALCIUM 7.7 MG/DL (8.5-10.1); CREATININE 0.53 MG/DL (0.50-1.00)
[2017-11-14] MEDS ORDERED: SODIUM CHLORIDE 0.9% FLUSH 10 ML FLUSH IV FLUSH SCH (09:00)
[2017-11-14 11:41] VITALS: BP 96/55; PULSE 113; TEMP 98.3; TEMP 99.3
[2017-11-14 11:50] VITALS: RESP 20
== END 2017-11-14 14:59 | disposition home or self-care (01) ==
LOC: HOBED 23:53 → H2EA 11-14 01:38
PROVIDERS: ADMIT Obstetrics & Gynecology; ATTEND Obstetrics & Gynecology
DX: O26.892 Other specified pregnancy related conditions, second trimester (principal); K52.9 Noninfective gastroenteritis and colitis, unspecified; O99.282 Endocrine, nutritional and metabolic diseases complicating pregnancy, second trimester; E86.0 Dehydration; O30.042 Twin pregnancy, dichorionic/diamniotic, second trimester; Z3A.23 23 weeks gestation of pregnancy
CPT/HCPCS: 80048; 81001; 85027; 87086; 87106; 96361; 96374; 96375; 99285; G0378; J2405; J2550; J3480; J7120

== ENCOUNTER → 2017-12-09 | Outpatient (CLI) | payer BC, OTHER ==
[~2017-12-09] MED LIST changes: -MACR100C2 PO; +ZOFR4TAB PO
== END ==
LOC: HPND 13:37
PROVIDERS: ATTEND Obstetrics & Gynecology
DX: O30.042 Twin pregnancy, dichorionic/diamniotic, second trimester (principal)
CPT/HCPCS: 76816

== ENCOUNTER 2017-12-30 16:21 | Emergency (ER) | payer BC, OTHER ==
[~2017-12-30] VITALS: Ht 175.3 cm; Wt 80.3 kg
[2017-12-30 18:09] LABS: AUTOMATED NEUTROPHIL # 6.1 TH/MM3 (1.8-7.7); BASOPHIL % 0.3 % (0.0-2.0); EOSINOPHIL % 0.5 % (0.0-4.0); HEMATOCRIT 28.8 % (35.0-46.0); HEMOGLOBIN 9.9 GM/DL (11.6-15.3); LYMPH % 23.7 % (9.0-44.0); LYMPHOCYTE # 2.1 TH/MM3 (1.0-4.8); MEAN CELL VOLUME 92.6 FL (80.0-100.0); MEAN CORPUSCULAR HEMOGLOBIN 32.1 PG (27.0-34.0); MEAN CORPUSCULAR HGB CONC 34.6 % (32.0-36.0); MEAN PLATELET VOLUME 8.8 FL (7.0-11.0); MONO % 7.4 % (0.0-8.0); MONOCYTE # 0.7 TH/MM3 (0-0.9); NEUT % 68.1 % (16.0-70.0); PLATELET COUNT 228 TH/MM3 (150-450); RED CELL DISTRIBUTION WIDTH 12.3 % (11.6-17.2); WHITE BLOOD COUNT 8.9 TH/MM3 (4.0-11.0)
[2017-12-30 19:56] LABS: BACTERIA, URINE MOD /hpf; BILIRUBIN, URINE NEG (NEG); BLOOD, URINE NEG (NEG); GLUCOSE,URINE NEG (NEG); KETONE, URINE NEG (NEG); MUCUS URINE FEW /lpf (OCC); NITRITE,URINE NEG (NEG); SQUAMOUS EPITHELIAL CELL URINE 10 /hpf (0-5); URINE COLOR YELLOW (YELLW/STRAW); URINE LEUKOCYTE ESTERASE NEG (NEG)
--- NOTE | 2017-12-30 21:47 | PD ---
HPI Chief Complaint fall Date Seen: Dec 30, 2017 Time Seen: 21:40 Travel History International Travel<30 Days: No Contact w/Intl Traveler<30Days: No Known Affected Area: No History of Present Illness HPI pt. is a @ 29 5/7 weeks presents s/p fall. pt. states she was at lab having labs drawn and fell on a wet spot on the floor. pt. states she fell forward and hit her belly. +FM, no vb/lof, no ctxs. pt. monitored for 4 hours w/ reactive fht x 2 and occasional ctxs. all lab work including kb was -. Weeks Gestation: 29 Para: 0 : 1 History Past Medical History Medical History: Denies Significant Hx Obstetric History Obstetric History Past Surgical History Surgical History: No Previous Surgery Family History Family History: Negative Social History Alcohol Use: No Tobacco Use: No Substance Abuse: No Allergies-Medications (Allergen,Severity, Reaction): Coded Allergies: No Known Allergies (Verified Allergy, Unknown, 11/14/17) Uncoded Allergies: NARCOTICS (Allergy, Severe, RECOVERING ADDICT, 11/12/10) PT REQUESTS NO NARCOTICS Home Meds Reported Medications Ondansetron (Zofran) 4 Mg Tab, 4 MG PO Q8HR Y for NAUSEA OR VOMITING, TAB 0 Refills 11/14/17 Review of Systems Except as stated in HPI: all other systems reviewed are Neg Physical Exam Narrative GENERAL: Well-nourished, well-developed patient. SKIN: Warm and dry. HEAD: Normocephalic and atraumatic. EYES: No scleral icterus. No injection or drainage. ENT: No nasal drainage noted. Mucous membranes pink. Airway patent. NECK: Supple, trachea midline. No JVD. CARDIOVASCULAR: Regular rate and rhythm without murmurs, gallops, or rubs. RESPIRATORY: Breath sounds equal bilaterally. No accessory muscle use. ABDOMEN/GI: Abdomen soft, non-tender, bowel sounds present, no rebound, no guarding Gravid Uterine Contractions: occasional FHT's: Category: 1 x 2 Reactive: + x 2 EXTREMITIES: No cyanosis or edema. BACK: Nontender without obvious deformity. No CVA tenderness. NEUROLOGICAL: Awake and alert. Motor and sensory grossly within normal limits. Five out of 5 muscle strength in all muscle groups. Normal speech. Data Data Vital Signs Reviewed: Yes Orders Orders Complete Blood Count With Diff (12/30/17 17:29) Juan Antonioauer Bart ( Hgb) (12/30/17 17:29) Type And Screen (12/30/17 17:29) Urinalysis - C+S If Indicated (12/30/17 19:08) Urine Culture (12/30/17 17:00) Director Of Assessment Clear For Discharge (12/30/17 ) Labs Laboratory Tests Test 12/30/17 17:00 12/30/17 17:37 Urine Color YELLOW Urine Turbidity HAZY Urine pH 7.0 Urine Specific [place] 1.019 Urine Protein 30 Urine Glucose (UA) NEG Urine Ketones NEG Urine Occult Blood NEG Urine Nitrite NEG Urine Bilirubin NEG Urine Urobilinogen 2.0 Urine Leukocyte Esterase NEG Urine WBC 9 Urine Squamous Epithelial Cells 10 Urine Bacteria MOD Urine Mucus FEW Microscopic Urinalysis Comment CULTURE INDICATED White Blood Count 8.9 Red Blood Count 3.10 Hemoglobin 9.9 Hematocrit 28.8 Mean Corpuscular Volume 92.6 Mean Corpuscular Hemoglobin 32.1 Mean Corpuscular Hemoglobin Concent 34.6 Red Cell Distribution Width 12.3 Platelet Count 228 Mean Platelet Volume 8.8 Neutrophils (%) (Auto) 68.1 Lymphocytes (%) (Auto) 23.7 Monocytes (%) (Auto) 7.4 Eosinophils (%) (Auto) 0.5 Basophils (%) (Auto) 0.3 Neutrophils # (Auto) 6.1 Lymphocytes # (Auto) 2.1 Monocytes # (Auto) 0.7 Eosinophils # (Auto) 0.0 Basophils # (Auto) 0.0 CBC Comment DIFF FINAL Differential Comment Hemoglobin F () 0.0 Date/Time Source Procedure Growth Status 12/30/17 17:00 Urine Clean Catch Urine Culture Pending Received [facility] Medical Record Reviewed: Yes Plan pt. s/p fall w/ trauma to abdomen. pt. currently stable now. condition d/w pt. all ? answered. pt. given precautions for return. f/u as sched. Diagnosis Diagnosis: Primary Impression: Fall Additional Impressions: Abdominal trauma 29 weeks gestation of Twin Disposition: 01 DISCHARGE HOME Colin Herrera Jr., MD Dec 30, 2017 21:47
== END 2017-12-30 21:45 | disposition home or self-care (01) ==
LOC: HOBED 16:21
DX: O30.003 Twin pregnancy, unspecified number of placenta and unspecified number of amniotic sacs, third trimester (principal); S39.91XA Unspecified injury of abdomen, initial encounter; O9A.213 Injury, poisoning and certain other consequences of external causes complicating pregnancy, third trimester; R82.90 Unspecified abnormal findings in urine; W01.0XXA Fall on same level from slipping, tripping and stumbling without subsequent striking against object, initial encounter; Y92.538 Other ambulatory health services establishments as the place of occurrence of the external cause; Z3A.29 29 weeks gestation of pregnancy
CPT/HCPCS: 76815; 81001; 83030; 85025; 86850; 86900; 86901; 87086

== ENCOUNTER → 2018-01-06 | Outpatient (CLI) | payer OTHER | LOC: HPND 09:45 | PROVIDERS: ATTEND Obstetrics & Gynecology | DX: O30.043 Twin pregnancy, dichorionic/diamniotic, third trimester (principal) | CPT/HCPCS: 76816 ==

== ENCOUNTER 2018-02-09 08:53 | Emergency (ER) | payer OTHER ==
[~2018-02-09] VITALS: Ht 175.3 cm; Wt 87.1 kg
[2018-02-09] MEDS ORDERED: PREN1TAB45 PO (09:04)
[2018-02-09] MEDS ORDERED: BENA25CA4 (09:04)
[2018-02-09] MEDS ORDERED: URSODIOL 300 MG CAP PO STA (10:40)
[2018-02-09 10:44] LABS: ALBUMIN 2.2 GM/DL (3.4-5.0); AST (GOT) 38 U/L (15-37); BICARBONATE 23.4 MEQ/L (21.0-32.0); BLOOD UREA NITROGEN 18 MG/DL (7-18); CALCIUM 9.8 MG/DL (8.5-10.1); CHLORIDE 105 MEQ/L (98-107); CREATININE 1.09 MG/DL (0.50-1.00); GLOMERULAR FILTRATION RATE 57 ML/MIN (>89); GLUCOSE,RANDOM 87 MG/DL (74-106); SODIUM (NA) 138 MEQ/L (136-145)
--- NOTE | 2018-02-09 10:49 | PD ---
HPI Chief Complaint Itching Date Seen: February 09, 2018 Travel History International Travel<30 Days: No Contact w/Intl Traveler<30Days: No Known Affected Area: No History of Present Illness HPI 33-year-old who is at 35 weeks 4 days with twin gestation comes in complaining of profuse pruritus. Patient states the pruritus began about 3-4 weeks ago initially starting on the soles of her hands and her feet and then progressing thereafter. Patient denies any evidence of rash or allergy components. And she states that this is not been an issue in the past either during the or prior to the . When patient initially started with the symptoms she had liver function test done and bile acids checked which she states was normal per the office communication but her symptoms have continuously worsened since then, not improved with Vistaril or Benadryl. Patient has had radial growth ultrasounds with the last ultrasound occurring January 06 all of which have been normal with good rate of growth. Patient has C- section scheduled for either 38 or 39 weeks gestation Weeks Gestation: 35 Para: 0 : 1 History Past Medical History Medical History: Denies Significant Hx Past Surgical History Narrative Surgical Laparoscopy Family History Family History: Negative Social History Alcohol Use: No Tobacco Use: No Substance Abuse: No Allergies-Medications (Allergen,Severity, Reaction): Coded Allergies: No Known Allergies (Verified Allergy, Unknown, 11/14/17) Uncoded Allergies: NARCOTICS (Allergy, Severe, RECOVERING ADDICT, 11/12/10) PT REQUESTS NO NARCOTICS Home Meds Active Scripts Ursodiol (Ursodiol) 300 Mg Cap, 300 MG PO TID for Gallstones for 30 Days, #90 CAP 0 Refills Prov:Latoya Otero MD 02/09/18 Reported Medications Vit,Calc76/Iron/Folic (Pnv 29-1 Tablet) 29 Mg Iron-1 Mg Tablet, 1 TAB PO DAILY 02/09/18 Diphenhydramine HCl (Benadryl Allergy) 25 Mg Cap 02/09/18 Discontinued Reported Medications Ondansetron (Zofran) 4 Mg Tab, 4 MG PO Q8HR Y for NAUSEA OR VOMITING, TAB 0 Refills 11/14/17 Review of Systems Except as stated in HPI: all other systems reviewed are Neg Physical Exam Narrative GENERAL: Well-nourished, well-developed patient. SKIN: Warm and dry. Some excoriations are noted from the patient's intense continuous scratching but no rashes seen. HEAD: Normocephalic and atraumatic. EYES: No scleral icterus. No injection or drainage. ENT: No nasal drainage noted. Mucous membranes pink. Airway patent. NECK: Supple, trachea midline. No JVD. CARDIOVASCULAR: Regular rate and rhythm without murmurs, gallops, or rubs. RESPIRATORY: Breath sounds equal bilaterally. No accessory muscle use. ABDOMEN/GI: Abdomen soft, non-tender, bowel sounds present, no rebound, no guarding Gravid to [-42] weeks size Fundal Height: [-] GENITOURINARY: Deferred External Genitalia: intact and normal in appearance BUS glands: [-] Cervix: [-] Dilatation: [-] Effacement: [-] Station: [-] Presentation: [-] Membranes: [intact or ruptured] Uterine Contractions: [-] FHT's: Category: [-] 1 in both babies Baseline: [-] 140 baby A, 145 baby B Reactive: [-] Moderate in both babies Variability: [-] Moderate in both babies Decels: [-] EXTREMITIES: No cyanosis or edema. BACK: Nontender without obvious deformity. No CVA tenderness. NEUROLOGICAL: Awake and alert. Motor and sensory grossly within normal limits. Five out of 5 muscle strength in all muscle groups. Normal speech. Data Data Orders Orders Comprehensive Metabolic Panel (02/09/18 09:52) Bile Acids Total (02/09/18 09:52) Ursodiol (Actigall) (02/09/18 10:40) Us Ob Bpp Wo Nst (02/09/18 ) Labs Laboratory Tests Test 02/09/18 10:11 02/09/18 10:27 Blood Urea Nitrogen 18 Creatinine 1.09 Random Glucose 87 Albumin 2.2 Calcium Level 9.8 Aspartate Amino Transf (AST/SGOT) 38 Sodium Level 138 Potassium Level 4.0 Chloride Level 105 Carbon Dioxide Level 23.4 Anion Gap 10 Estimat Glomerular Filtration Rate 57 MDM Medical Record Reviewed: Yes Plan 33-year-old twin gestation at 35-36 weeks with likely acute cholestasis of Patient was given a prescription for ursodiol 300 mg 3 times a day and she was given hydroxyzine here in the hospital Bile salts were rechecked but will not be ready as they are send out test and her 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
[2018-02-09] MEDS ORDERED: URSO300C2 PO (10:51)
[2018-02-09 10:52] LABS: ALKALINE PHOSPHATASE 174 U/L (45-117); ALT (GPT) 31 U/L (10-53); TOTAL BILIRUBIN ADULT 0.6 MG/DL (0.2-1.0); TOTAL PROTEIN 6.3 GM/DL (6.4-8.2)
== END 2018-02-09 11:56 | disposition home or self-care (01) ==
LOC: HOBED 08:53
DX: O26.893 Other specified pregnancy related conditions, third trimester (principal); L29.9 Pruritus, unspecified; O26.613 Liver and biliary tract disorders in pregnancy, third trimester; K83.1 Obstruction of bile duct; O30.003 Twin pregnancy, unspecified number of placenta and unspecified number of amniotic sacs, third trimester; Z3A.35 35 weeks gestation of pregnancy; Z79.899 Other long term (current) drug therapy
CPT/HCPCS: 36415; 76816; 76819; 80053; 82239

== ENCOUNTER 2018-02-14 02:38 | Inpatient (IN) | payer OTHER ==
[~2018-02-14 02:38] MED LIST changes: +BENA25CA4; +PREN1TAB45 PO; +URSO300C2 PO; -ZOFR4TAB PO
[2018-02-14] MEDS ORDERED: LACTATED RINGER'S 1000 ML INJ 1,000 ML IV ONE (04:03)
--- NOTE | 2018-02-14 04:03 | HHI.HP ---
History & Physical H&P Patient Name: Marti Barrera Unit Number: [id number] Date of : 1985 Patient Status: Admitted Inpatient Attending Doctor: Kimmie An MD HPI HPI Chief Complaint Leaking fluid Date Seen: Feb 14, 2018 Time Seen: 03:55 Travel History International Travel<30 Days: No Contact w/Intl Traveler<30Days: No Known Affected Area: No History of Present Illness HPI 33-year-old primigravida at 36+ weeks gestation with dichorionic twins who reports leaking fluid at 130. She is also having contractions now. She denies bleeding or diminished movement. She is anticipating a scheduled C- section later this month. History (Limited) History Past Medical History Narrative Medical History of hepatitis C, history of HSV with recent outbreak 2 weeks ago but no symptoms now Obstetric History Obstetric History Dichorionic diamniotic twins followed by Dr. Garg Recent working diagnosis of cholestasis of for which she is on ursodiol. No laboratory confirmation yet. HSV outbreak 2 weeks ago with no symptoms now. Past Surgical History Narrative Surgical Laparoscopy 2 for endometriosis Family History Family History: Negative Social History Alcohol Use: No Tobacco Use: No Substance Abuse: No Allergies-Medications Allergies-Medications (Allergen,Severity, Reaction): Coded Allergies: No Known Allergies (Verified Allergy, Unknown, 11/14/17) Uncoded Allergies: NARCOTICS (Allergy, Severe, RECOVERING ADDICT, 11/12/10) PT REQUESTS NO NARCOTICS Home Meds Active Scripts Ursodiol (Ursodiol) 300 Mg Cap, 300 MG PO TID for Gallstones for 30 Days, #90 CAP 0 Refills Prov:Latoya Otero MD 02/09/18 Reported Medications Vit,Calc76/Iron/Folic (Pnv 29-1 Tablet) 29 Mg Iron-1 Mg Tablet, 1 TAB PO DAILY 02/09/18 Diphenhydramine HCl (Benadryl Allergy) 25 Mg Cap 02/09/18 Discontinued Reported Medications Ondansetron (Zofran) 4 Mg Tab, 4 MG PO Q8HR Y for NAUSEA OR VOMITING, TAB 0 Refills 11/14/17 ROS Review of Systems Except as stated in HPI: all other systems reviewed are Neg Physical Exam Physical Exam Narrative GENERAL: Well-nourished, well-developed patient. SKIN: Warm and dry. HEAD: Normocephalic and atraumatic. EYES: No scleral icterus. No injection or drainage. ENT: No nasal drainage noted. Mucous membranes pink. Airway patent. NECK: Supple, trachea midline. No JVD. CARDIOVASCULAR: Regular rate and rhythm without murmurs, gallops, or rubs. RESPIRATORY: Breath sounds equal bilaterally. No accessory muscle use. BREASTS: Bilateral exam showed no masses , no retractions, no nipple discharge. ABDOMEN/GI: Abdomen soft, non-tender, bowel sounds present, no rebound, no guarding Gravid to [-] weeks size Fundal Height: [-] GENITOURINARY: External Genitalia: intact and normal in appearance BUS glands: [Negative-] Cervix: [-] Dilatation: [1-2 cm-] Effacement: [80%-] Station: [--2] Presentation: [-] Membranes: [ruptured] Uterine Contractions: [Every 2-3-] FHT's: Category: [-12] Baseline: [-] Reactive: [-] Variability: [-] Decels: [-] EXTREMITIES: No cyanosis or edema. BACK: Nontender without obvious deformity. No CVA tenderness. NEUROLOGICAL: Awake and alert. Motor and sensory grossly within normal limits. Five out of 5 muscle strength in all muscle groups. Normal speech. Data Data Data Vital Signs Reviewed: Yes Orders Orders Ob (2e) Additional Admit Info (02/14/18 03:27) MDM MDM Medical Record Reviewed: Yes Narrative Course / MDM Assessment: Primigravida at 36+ weeks with dichorionic twins and ruptured membranes with onset of contractions who desires delivery Plan: Patient will be admitted for labor management. Dr. An was notified of her presence. A at 6 AM is being arranged. The patient last ate at 1 AM which included hotdogs and chocolate milk. Diagnosis Diagnosis: Primary Impression: 36 weeks gestation of Additional Impressions: Dichorionic diamniotic twin gestation Ruptured, membranes, premature Condition: Good Dileep Sams MD Feb 14, 2018 04:03 Dileep Sams MD Feb 14, 2018 04:03
[2018-02-14] MEDS ORDERED: LACTATED RINGER'S 1000 ML INJ 1,000 ML IV SCH ×2 (04:33→19:30)
[2018-02-14 04:42] LABS: AUTOMATED NEUTROPHIL # 7.3 TH/MM3 (1.8-7.7); BASOPHIL % 0.2 % (0.0-2.0); EOSINOPHIL % 0.3 % (0.0-4.0); HEMATOCRIT 32.5 % (35.0-46.0); LYMPH % 30.3 % (9.0-44.0); LYMPHOCYTE # 3.5 TH/MM3 (1.0-4.8); MEAN CELL VOLUME 86.7 FL (80.0-100.0); MEAN CORPUSCULAR HEMOGLOBIN 29.4 PG (27.0-34.0); MEAN CORPUSCULAR HGB CONC 33.9 % (32.0-36.0); MEAN PLATELET VOLUME 10.8 FL (7.0-11.0); MONO % 5.9 % (0.0-8.0); MONOCYTE # 0.7 TH/MM3 (0-0.9); NEUT % 63.3 % (16.0-70.0); PLATELET COUNT 255 TH/MM3 (150-450); RED BLOOD COUNT 3.75 MIL/MM3 (4.00-5.30); RED CELL DISTRIBUTION WIDTH 13.5 % (11.6-17.2); WHITE BLOOD COUNT 11.6 TH/MM3 (4.0-11.0)
[2018-02-14] MEDS ORDERED: ceFAZolin 2 GM PREMIX 50 ML IV SCH (05:15)
[2018-02-14] MEDS ORDERED: MORPHINE SULFATE PF 5 MG/10 ML VIAL ONE (05:26)
[2018-02-14] MEDS ORDERED: CITRIC ACID-SODIUM CITRATE LIQ 30 ML UDC PO SCH (05:45)
[2018-02-14] MEDS ORDERED: EPIDURAL-NALOXONE HCL 0.4 MG/ML AMP IV PUSH PRN (06:05)
[2018-02-14] MEDS ORDERED: EPIDURAL-DIPHENHYDRAMINE HCL 50 MG/ML VIAL IV PUSH PRN (06:05)
[2018-02-14] MEDS ORDERED: EPIDURAL-DO NOT ADMINISTER ANTICOAGULANTS PRN (06:05)
[2018-02-14] MEDS ORDERED: EPIDURAL-DIPHENHYDRAMINE HCL 50 MG CAP PO PRN (06:05)
[2018-02-14] MEDS ORDERED: EPIDURAL-NO SYSTEMIC NARCOTICS PRN (06:05)
[2018-02-14] MEDS ORDERED: oxyCODONE/ACETAMINOPHEN 5 MG/325 MG TAB PO PRN (07:00)
[2018-02-14] MEDS ORDERED: KETOROLAC TROMETHAMINE 60 MG/2 ML (IM) VIAL IM PRN (07:00)
[2018-02-14] MEDS ORDERED: ONDANSETRON ODT 4 MG TAB PO PRN (07:00)
[2018-02-14] MEDS ORDERED: SODIUM CHLORIDE 0.9% FLUSH 10 ML FLUSH IV FLUSH PRN (07:00)
[2018-02-14] MEDS ORDERED: OXYTOCIN 30 UNITS-500ML PREMIX 500 ML IV ONE (07:00)
--- NOTE | 2018-02-14 07:39 | MP ---
cc: Kimmie An MD DATE OF OPERATION: 02/14/2018 DATE OF SURGERY: 02/14/2018. PREOPERATIVE DIAGNOSIS: Intrauterine at 36 weeks and 2 days gestation with twins, vertex breech presentation, in active labor. POSTOPERATIVE DIAGNOSES: Intrauterine at 36 weeks and 2 days gestation with twins, vertex breech presentation, in active labor. PROCEDURE PERFORMED: Primary low transverse section. SURGEON: Dr. Kimmie An. ANESTHESIA: Spinal. FINDINGS: In surgery included baby A, a viable female weighing 5 pounds 9 ounces with Apgars 8 and 9, and baby B, a viable male, 6 pounds 7 ounces with Apgars 7 and 7. BLOOD LOSS: 800 mL COMPLICATIONS: None. PROCEDURE IN DETAIL: After proper consents were obtained, blood had been typed and screened, the patient was taken to the operating room, where spinal anesthetic was placed. She was then placed in the dorsal position, sterilely prepped and draped, and a Sutton catheter was placed. At this time, using a sharp knife, a Pfannenstiel skin incision was made. This was carried down to the fascia using the Bovie cautery. The fascia was nicked in the midline and extended superolaterally on each side using the Bovie cautery. Muscle bellies were bluntly dissected from the fascia. Peritoneum identified, grasped with 2 hemostats, entered sharply with the Metzenbaum scissors. This incision was extended superiorly and inferiorly, paying close attention to the bladder. Bladder blade was placed. Bladder flap was developed. Bladder blade was replaced. Transverse incision in the lower uterine segment. This was extended using the finger fracture technique. Controlled delivery of vertex of the first baby A, bulb suction of the oropharynx and the nares, and then the delivery of the body followed. We delayed cord clamping for about 30 seconds, clamped the cord, cut in between, and that was handed to the team in attendance, a viable female, 5 pounds 9 ounces, with Apgars 8 and 9. I then broke baby B's water. It was presenting as a footling breech. I delivered the right leg, followed by the left leg. I rotated the body to dorsal side up, mid scapular region, swept the right hand across the face and out, the left hand across, and then delivered the vertex. Bulb suction to the oropharynx and the nares. We did not delay cord clamping here because the baby did not have much tone and the neonatology team wanted the baby. We went ahead and clamped the cord, cut in between, and that was handed to the team in attendance, a viable male, 6 pound, 7 ounces with Apgars 7 and 7. At this time, we obtained cord blood from each placenta. We then removed the placentas and exteriorized the uterus, wiping it clean of clots and debris. We then closed the incision using a #1 chromic suture, starting at each apex and meeting in the midline in a running interlocking fashion. Excellent hemostasis was noted. Irrigation was performed of the abdominal pelvic cavity. We placed the uterus back into the cavity. We reaffirmed hemostasis. We reapproximated the muscles using a #1 chromic suture x1. We then closed the fascia using 0 Vicryl starting at each apex and meeting in the midline in a running fashion. Irrigation was performed of the subcutaneous. Hemostasis was achieved with Bovie cautery. Skin was closed with tawanna. All sponge, lap, and needle counts were correct x3. MD ARCELIA Marvin/HERMES , 06:56 AM , 07:39 AM
[2018-02-14] MEDS ORDERED: OXYTOCIN 30 UNITS-500ML PREMIX 500 ML ONE (08:11)
[2018-02-14] MEDS ORDERED: SODIUM CHLORIDE 0.9% FLUSH 10 ML FLUSH IV FLUSH SCH (09:00)
[2018-02-14] MEDS ORDERED: PHENYLEPH/NS 1000 MCG/10 ML SYR IV ONE (12:00)
[2018-02-14] MEDS ORDERED: OXYTOCIN 30 UNITS-500ML PREMIX 500 ML IV PRN (12:00)
[2018-02-14] MEDS ORDERED: OXYTOCIN 10 UNIT/ML AMP IV ONE (12:00)
[2018-02-14] MEDS ORDERED: ONDANSETRON HCL 4 MG/2 ML VIAL IV ONE (12:00)
[2018-02-14] MEDS: LACTATED RINGER'S 1000 ML INJ 1,000 ML IV SCH ×2 (12:40→20:00)
[2018-02-14 14:30] VITALS: BP 130/77; PULSE 67; RESP 18; TEMP 98.6
[2018-02-14] MEDS: IBUPROFEN 600 MG TAB PO PRN (18:48)
[2018-02-14] MEDS: oxyCODONE/ACETAMINOPHEN 5 MG/325 MG TAB PO PRN ×2 (18:48→23:21)
[2018-02-15] MEDS: SIMETHICONE 80 MG CHEWABLE TAB PO PRN ×3 (00:38→15:57)
[2018-02-15] MEDS: oxyCODONE/ACETAMINOPHEN 5 MG/325 MG TAB PO PRN ×5 (03:11→20:08)
[2018-02-15] MEDS: IBUPROFEN 600 MG TAB PO PRN ×3 (03:12→20:07)
[2018-02-15] MEDS: MORPHINE SULFATE 4 MG/ML INJ IV PUSH PRN ×2 (06:00→13:34)
[2018-02-15 07:47] VITALS: BP 134/78; PULSE 97; RESP 20; TEMP 99; O2SAT 99
[2018-02-15 08:04] LABS: AUTOMATED NEUTROPHIL # 8.3 TH/MM3 (1.8-7.7); BASOPHIL % 0.3 % (0.0-2.0); EOSINOPHIL % 0.3 % (0.0-4.0); HEMOGLOBIN 8.1 GM/DL (11.6-15.3); LYMPH % 16.8 % (9.0-44.0); LYMPHOCYTE # 1.8 TH/MM3 (1.0-4.8); MEAN CORPUSCULAR HGB CONC 33.8 % (32.0-36.0); MEAN PLATELET VOLUME 9.5 FL (7.0-11.0); MONO % 6.2 % (0.0-8.0); MONOCYTE # 0.7 TH/MM3 (0-0.9); NEUT % 76.4 % (16.0-70.0); PLATELET COUNT 184 TH/MM3 (150-450); RED BLOOD COUNT 2.79 MIL/MM3 (4.00-5.30); RED CELL DISTRIBUTION WIDTH 13.2 % (11.6-17.2); WHITE BLOOD COUNT 10.9 TH/MM3 (4.0-11.0)
--- NOTE | 2018-02-15 09:44 | HHI.OB ---
Subjective Post Day: 1 Remarks doing well after CS Objective Vitals/I&O Vital Signs Date Time Temp Pulse Resp B/P (MAP) Pulse Ox O2 Delivery O2 Flow Rate FiO2 02/14/18 14:30 98.6 67 18 130/77 (94) Objective Remarks GENERAL: Well-nourished, well-developed patient. ABDOMEN/GI: Abdomen soft, non-tender. Fundus: Firm, non-tender at umbilicus.incision clean and dry GENITOURINARY: Light to moderate bleeding. EXTREMITIES: No cyanosis or edema, non-tender, without signs of DVT. Medications and IVs Current Medications Medications (Trade) Dose Ordered Sig/Zachery Route Start Time Stop Time Status Last Admin Lactated Ringer's 1,000 ml @ 150 mls/hr Q6H40M IV 02/14/18 04:33 02/14/18 05:14 Cefazolin Sodium/ Dextrose 50 ml @ 100 mls/hr CIVILIAN TECHNICIAN IV 02/14/18 05:15 02/18/18 05:14 02/14/18 05:41 (Bicitra Liq) 30 ml CIVILIAN TECHNICIAN PO 02/14/18 05:45 02/18/18 05:44 02/14/18 05:42 Oxytocin 500 ml @ 100 mls/hr UNSCH X1 PRN IV 02/14/18 12:00 02/15/18 11:59 (NS Flush) 2 ml BID IV FLUSH 02/14/18 09:00 (NS Flush) 2 ml UNSCH PRN IV FLUSH 02/14/18 07:00 (Mylicon Chew) 80 mg QID PRN PO 02/14/18 07:00 02/15/18 08:37 (Motrin) 600 mg Q6H PRN PO 02/14/18 07:00 02/15/18 03:12 (Percocet 5-325 Mg) 1 tab Q4H PRN PO 02/14/18 07:00 (Percocet 5-325 Mg) 2 tab Q4H PRN PO 02/14/18 07:00 02/15/18 07:45 (M-M-R Ii Inj) 0.5 ml ONCE ONCE SQ 02/15/18 16:00 02/15/18 16:01 (Boostrix Inj) 0.5 ml ONCE ONCE IM 02/15/18 16:00 6/5/18 16:01 02/15/18 06:04 (Zofran Odt) 4 mg Q6H PRN PO 02/14/18 07:00 (Morphine Inj) 4 mg Q2H PRN IV PUSH 02/15/18 06:00 02/15/18 06:00 Assessment/Plan Problem List: (1) delivery delivered ICD Codes: O82 - Encounter for delivery without indication Jett Simmons MD Feb 15, 2018 09:44
--- NOTE | 2018-02-15 09:45 | HHI.DCPOC ---
Discharge Care Plan Diagnosis: (1) delivery delivered (2) Dichorionic diamniotic twin gestation Report Symptoms to Your Doctor -Temperature above 100.5 degrees -Redness, of incision or excessive or foul smelling drainage -Unusual pain or calf pain -Increased vaginal bleeding -Painful or difficulty urinating -Feelings of extreme sadness or anxiety after 2 weeks Goals to Promote Your Health * To prevent worsening of your condition and complications * To maintain your health at the optimal level Directions to Meet Your Goals Take your medications as prescribed Follow your dietary instruction Follow activity as directed Ensure plenty of rest for recovery Drink fluids for hydration Keep your appointments as scheduled Take your immunizations and boosters as scheduled If your symptoms worsen call your PCP, if no PCP go to Urgent Care Center or Emergency Room Smoking is Dangerous to Your Health. Avoid second hand smoke Call the 24-hour crisis hotline for domestic abuse at Jett Simmons MD Feb 15, 2018 09:45
[2018-02-15] MEDS ORDERED: MEASLES, MUMPS, RUBELLA VACCINE 0.5 ML VIAL SQ ONE (16:00)
[2018-02-15] MEDS ORDERED: DIPHTH/TETANUS/ACEL PERTUSSIS (BOOSTER) 0.5 ML VIAL/PFS IM ONE (16:00)
[2018-02-15 18:45] VITALS: BP 121/85; PULSE 101; RESP 18; TEMP 98.1
[2018-02-15 20:00] VITALS: BP 127/90; PULSE 75; RESP 18; TEMP 98.6; O2SAT 96
[2018-02-15] MEDS: DOCUSATE SODIUM 100 MG CAP PO SCH (20:08)
[2018-02-16] MEDS: IBUPROFEN 600 MG TAB PO PRN ×3 (05:00→22:31)
[2018-02-16] MEDS: oxyCODONE/ACETAMINOPHEN 5 MG/325 MG TAB PO PRN ×5 (05:01→22:31)
[2018-02-16] MEDS: DOCUSATE SODIUM 100 MG CAP PO SCH ×2 (08:22→22:32)
--- NOTE | 2018-02-16 13:47 | HHI.OB ---
Subjective Post Day: 2 Remarks doing well Objective Vitals/I&O Vital Signs Date Time Temp Pulse Resp B/P (MAP) Pulse Ox O2 Delivery O2 Flow Rate FiO2 02/15/18 18:45 98.1 101 18 121/85 Objective Remarks GENERAL: Well-nourished, well-developed patient. ABDOMEN/GI: Abdomen soft, non-tender. Fundus: Firm, non-tender at umbilicus.incision clean and dry GENITOURINARY: Light to moderate bleeding. EXTREMITIES: No cyanosis or edema, non-tender, without signs of DVT. Medications and IVs Current Medications Medications (Trade) Dose Ordered Sig/Zachery Route Start Time Stop Time Status Last Admin Lactated Ringer's 1,000 ml @ 150 mls/hr Q6H40M IV 02/14/18 04:33 02/14/18 05:14 Cefazolin Sodium/ Dextrose 50 ml @ 100 mls/hr PUBLIC RELATIONS ACCOUNT EXECUTIVE IV 02/14/18 05:15 02/18/18 05:14 02/14/18 05:41 (Bicitra Liq) 30 ml PUBLIC RELATIONS ACCOUNT EXECUTIVE PO 02/14/18 05:45 02/18/18 05:44 02/14/18 05:42 (NS Flush) 2 ml BID IV FLUSH 02/14/18 09:00 (NS Flush) 2 ml UNSCH PRN IV FLUSH 02/14/18 07:00 (Mylicon Chew) 80 mg QID PRN PO 02/14/18 07:00 02/15/18 15:57 (Motrin) 600 mg Q6H PRN PO 02/14/18 07:00 02/16/18 05:00 (Percocet 5-325 Mg) 1 tab Q4H PRN PO 02/14/18 07:00 (Percocet 5-325 Mg) 2 tab Q4H PRN PO 02/14/18 07:00 02/16/18 09:33 (Zofran Odt) 4 mg Q6H PRN PO 02/14/18 07:00 (Morphine Inj) 4 mg Q2H PRN IV PUSH 02/15/18 06:00 02/15/18 13:34 (Colace) 100 mg BID PO 02/15/18 21:00 02/16/18 08:22 Assessment/Plan Problem List: (1) delivery delivered ICD Codes: O82 - Encounter for delivery without indication Jett Simmons MD Feb 16, 2018 13:47
[2018-02-16 20:04] VITALS: BP 118/87; PULSE 68; RESP 18; TEMP 98.2
[2018-02-17] MEDS: oxyCODONE/ACETAMINOPHEN 5 MG/325 MG TAB PO PRN ×4 (02:25→17:13)
[2018-02-17] MEDS ORDERED: diphenhydrAMINE HCL 25 MG CAP PO PRN (03:00)
--- NOTE | 2018-02-17 07:18 | HHI.OB ---
Subjective Post Day: 3 Remarks doing well Objective Vitals/I&O Vital Signs Date Time Temp Pulse Resp B/P (MAP) Pulse Ox O2 Delivery O2 Flow Rate FiO2 02/16/18 20:04 98.2 68 18 118/87 (97) Objective Remarks GENERAL: Well-nourished, well-developed patient. ABDOMEN/GI: Abdomen soft, non-tender. Fundus: Firm, non-tender at umbilicus.incision clean and dry GENITOURINARY: Light to moderate bleeding. EXTREMITIES: No cyanosis or edema, non-tender, without signs of DVT. Medications and IVs Current Medications Medications (Trade) Dose Ordered Sig/Zachery Route Start Time Stop Time Status Last Admin Lactated Ringer's 1,000 ml @ 150 mls/hr Q6H40M IV 02/14/18 04:33 02/14/18 05:14 Cefazolin Sodium/ Dextrose 50 ml @ 100 mls/hr SQL SSIS DEVELOPER IV 02/14/18 05:15 02/18/18 05:14 02/14/18 05:41 (Bicitra Liq) 30 ml SQL SSIS DEVELOPER PO 02/14/18 05:45 02/18/18 05:44 02/14/18 05:42 (NS Flush) 2 ml BID IV FLUSH 02/14/18 09:00 (NS Flush) 2 ml UNSCH PRN IV FLUSH 02/14/18 07:00 (Mylicon Chew) 80 mg QID PRN PO 02/14/18 07:00 02/15/18 15:57 (Motrin) 600 mg Q6H PRN PO 02/14/18 07:00 02/16/18 22:31 (Percocet 5-325 Mg) 1 tab Q4H PRN PO 02/14/18 07:00 (Percocet 5-325 Mg) 2 tab Q4H PRN PO 02/14/18 07:00 02/17/18 02:25 (Zofran Odt) 4 mg Q6H PRN PO 02/14/18 07:00 (Morphine Inj) 4 mg Q2H PRN IV PUSH 02/15/18 06:00 02/15/18 13:34 (Colace) 100 mg BID PO 02/15/18 21:00 02/16/18 22:32 (Benadryl) 25 mg Q4H PRN PO 02/17/18 03:00 02/17/18 03:02 Assessment/Plan Problem List: (1) delivery delivered ICD Codes: O82 - Encounter for delivery without indication Discharge Planning dc today Jett Simmons MD Feb 17, 2018 07:18
[2018-02-17] MEDS ORDERED: OXYC1TAB63 PO (07:21)
--- NOTE | 2018-02-17 07:21 | HHI.DS ---
Admission Date Feb 14, 2018 at 03:27 Discharge Date: Feb 17, 2018 Admitting Diagnosis Diagnosis: (1) delivery delivered ICD Codes: O82 - Encounter for delivery without indication (2) Dichorionic diamniotic twin gestation ICD Codes: O30.049 - Twin , dichorionic/diamniotic, unspecified trimester Status: Acute Delivery Date: Feb 14, 2018 : Primary Reason: twin breech Infant: Multiple Brief History 33-year-old primigravida at 36+ weeks gestation with dichorionic twins who reports leaking fluid at 130. She is also having contractions now. She denies bleeding or diminished movement. She is anticipating a scheduled C- section later this month. Hospital Course CS by [facility] for twins breech, doing well ppd#3 Pt Condition on Discharge: Good Discharge Disposition: Discharge Home Discharge Instructions Diet Instructions: As Tolerated, No Restrictions Activities You Can Perform: Pelvic Rest Activities to Avoid: Driving for 24 hrs Follow up Referrals: MARKETING PRODUCER - 2 Weeks @ [facility] with Jett Simmons MD Continued Medications: Vit,Calc76/Iron/Folic (Pnv 29-1 Tablet) 29 Mg Iron-1 Mg Tablet 1 TAB PO DAILY Discontinued Medications: Diphenhydramine HCl (Benadryl Allergy) 25 Mg Cap Ursodiol (Ursodiol) 300 Mg Cap 300 MG PO TID for Gallstones for 30 Days, #90 CAP 0 Refills Jett Simmons MD Feb 17, 2018 07:21
[2018-02-17] MEDS: IBUPROFEN 600 MG TAB PO PRN ×2 (08:22→17:13)
[2018-02-17] MEDS: DOCUSATE SODIUM 100 MG CAP PO SCH (08:22)
== END 2018-02-17 19:00 | disposition home or self-care (01) | DRG 765 ==
LOC: HOBED 02:38 → H2EB 03:27 → H1EA 08:26
PROVIDERS: ADMIT Obstetrics & Gynecology; ATTEND Obstetrics & Gynecology
PROC: 10D00Z1 Extraction of Products of Conception, Low, Open Approach (ICD-10-PCS; principal; 2018-02-14)
DX: O32.8XX2 Maternal care for other malpresentation of fetus, fetus 2 (principal); B19.20 Unspecified viral hepatitis C without hepatic coma; O98.42 Viral hepatitis complicating childbirth; O30.043 Twin pregnancy, dichorionic/diamniotic, third trimester; Z37.2 Twins, both liveborn; Z3A.36 36 weeks gestation of pregnancy
CPT/HCPCS: 80307; 84112; 85025; 85461; 86077; 86850; 86870; 86900; 86901; 90384; 90715; 99283; G0481; J0690; J1885; J2270; J2274; J2370; J2405; J2590; J2790; J3010; J7120; Q0163